=== PATIENT | female | born 1965 | race Caucasian/White ===

== ENCOUNTER → 2020-09-15 11:41 | Outpatient (CLI) | payer BC, SELFPAY ==
--- NOTE | ~2020-09-15 | CT_ITS ---
EXAMINATION: CT sinus wo con EXAM DATE: 09/15/2020 12:04 INDICATION: Chronic sinusitis, congestion, sinus drainage. TECHNIQUE: Spiral CT of the sinuses was acquired in the axial plane. Coronal and sagittal reformatte d images were also reviewed. The dose-length product (DLP) for this examination was 295.05 mGy-cm. Iterative reconstruction (ASIR) was used as dose reduction technique. Comparison is made to prior exa mination from 05/03/2017. FINDINGS: The sinuses are normally developed. Frontal and ethmoid sinuses are nearly completely op acified. There is moderate mucoperiosteal thickening in the maxillary and sphenoid sinuses with air-f luid levels in all of them. Sinus wall thickening indicating that there is chronic sinus opacity. The amount of opacity has progressed substantially compared to 2017. The ostiomeatal units are occluded . There is minimal leftward nasal septal deviation. The mastoid air cells and middle ears are well aerated. External auditory canals are patent. Incidental bilateral optical retina punctate calci fication, drusen. IMPRESSION: 1. Extensive acute on chronic sinusitis. 2. Incidental bilateral drusen. Reviewed, dictated and finalized at location B. SS SERVICE REPRESENTATIVE
== END ==
PROVIDERS: Visit Provider Otolaryngology
DX: H47.323 Drusen of optic disc, bilateral (principal); J01.80 Other acute sinusitis
CPT/HCPCS: 70486

== ENCOUNTER → 2020-10-09 05:15 | Outpatient (CLI) | payer BC, SELFPAY ==
[2020-10-09 19:22] LABS: SARS-CoV-2 RNA PCR Negative
== END ==
PROVIDERS: Visit Provider Otolaryngology
DX: Z01.812 Encounter for preprocedural laboratory examination (principal); Z20.822 Contact with and (suspected) exposure to COVID-19
CPT/HCPCS: C9803; U0003; U0005

== ENCOUNTER 2020-10-12 01:30 | Day surgery (SDC) | payer BC, SELFPAY ==
[2020-10-05 10:12] VITALS: BMI 21.9
[2020-10-12] VITALS (8 sets, daily range): BP systolic 103–129; BP diastolic 66–76; PULSE 44–69; RESP 11–15; TEMP 36.4; O2SAT 94–100; BMI 21.5
--- NOTE | 2020-10-12 07:21 | WPDHPUPDATE1 ---
History and Physical Update Update Date/Time: 10/12/20 07:21 History and Physical has been reviewed, including an updated exam of the patient. There are NO changes in the patient's condition. Risks, benefits, and alternatives have been discussed and questions answered. Patient agrees to proceed with procedure.
[2020-10-12] MEDS: ACETAMINOPHEN 500 MG TABLET 1000 MG PO (07:40)
[2020-10-12] MEDS: LACTATED RINGERS 1,000 ML 30 ML IV CONT ×2 (07:57→10:59)
--- NOTE | 2020-10-12 07:58 | P.PNAN_ITS ---
Anes - Initial Pre Proc Eval Procedure: Operation Date: 10/12/20 09:00 Proposed Procedures p Image Guided Bilateral Frontal Sinusotomy, Bilateral Ethmoidectomy, Bilateral Sphenoidotomy, Bilateral Maxillary Antrostomy, Bilateral Turbinate Reduction, Bilateral Maxillary Lavage, - Adan Gutierrez MD s Septoplasty - Adan Gutierrez MD Date/Time: 10/12/20 07:58 Surgeon: Adan Gutierrez MD Pre Op Diagnosis: Chronic Pansinusitis Patient Data Age: 54 Gender: F Height: 6 ft 4 in Weight: 80.3 kg Allergies Allergy/AdvReac Type Severity Reaction Status Date / Time amoxicillin [From Augmentin] Allergy Severe Rash Verified 10/12/20 07:36 clavulanic acid Allergy Severe Rash Verified 10/12/20 07:36 [From Augmentin] Home Medications Medication Instructions Recorded Confirmed Type Multi Vitamin 1 tablet PO HS 10/05/20 10/12/20 History fluticasone furoate-vilanterol 1 inh INHALATION DAILY 10/05/20 10/12/20 History [Breo Ellipta] levofloxacin 500 mg PO DAILY 10/05/20 10/12/20 History Patient hx anesthesia problems: none Family hx anesthesia problems: none [facility] Past Medical History Medical History Asthma Social History Social History Smoking status: Never smoker Alcohol intake: never Substance use: never Substance use type: does not use Living arrangements: with family Spiritual care concerns: No Anes - Eval Final PreProcedure Day of Procedure 10/12/20 07:58 Patient weight: normal Heart: regular rate and rhythm Lungs: clear to auscultation Airway: Mallampati scale class II Neurological: alert and oriented Last oral intake: >/= 8 hours ASA classification: II Emergent: no Anesthetic plan: proceed Anesthesia type and monitoring: general ETT and standard monitoring Informed Consent: The patient's anesthetic plan and its attendant risks and benefits were discussed with the patient/family/POA. Questions were solicited and answers provided to the satisfaction of the patient/family/POA.
[2020-10-12] MEDS: OXYMETAZOLINE HCL 0.05% NAS 15 ML BTL (*BKC) 1 SPRAY NASAL (09:05)
[2020-10-12] MEDS: CLINDAMYCIN 900 MG/D5W 50 ML 900 MG/50 ML PIGGYBACK 50 MG IVPB (09:11)
[2020-10-12] MEDS: LIDO 1%/EPINEPHRINE 1:100,000 50 ML VIAL 6 ML INFILTRATE (09:17)
--- NOTE | 2020-10-12 10:50 | PM.PROC ---
Procedure Note - Detailed Date of procedure: 10/12/20 Pre-op diagnosis: Chronic Pansinusitis Post-op diagnosis: same Procedure performed: Bilateral frontal sinusotomy balloon assisted, bilateral maxillary antrostomy with maxillary lavage, bilateral total ethmoidectomy, bilateral sphenoidotomy, bilateral inferior turbinoplasty, image guided surgery Description of procedure: On the date of procedure the patient was met in the preoperative area and risk and benefits of the procedure reviewed with the patient as documented in the H&P and they elected to proceed with surgery. Patient was brought back to the operating room by the anesthesia team and underwent general endotracheal anesthesia. Once an adequate plane of anesthesia was obtained a timeout was performed to assure the patient identification the patient here to be performed were correct. They were.The patient was then prepped and draped in the normal fashion for endoscopic sinus surgery. The diffusion image guidance system was calibrated and used for the entire case. Afrin-soaked pledgets were placed in the nasal cavities bilaterally. The entire case was performed under endoscopic visualization. Nasal endoscopy was performed at the beginning of the case. 1% lidocaine with 1:100,000 epinephrine was then injected into the root of the middle turbinate and lateral nasal wall. Attention was first directed towards the right side. The middle turbinate was medialized and the osteomeatal complex was identified with a dolly probe. Using a 90 degree backbiter, the uncinate process was reflected anteriorly and removed using a combination of sharp and powered dissection. The maxillary antrostomy was then created and widened by identifying the natural ostia and opening the sinus with straight lay-cut forceps, backbiter, and microdebrider. Purulent fluid encountered in the maxillary sinus was suctioned and the sinus was copiously irrigated. Continuing with the microdebrider, the anterior ethmoid bulla was opened. Careful dissection was carried out posteriorly, through the basal lamella and posterior ethmoid cells until the sphenoid rostrum was identified. A Lilliana suction bluntly identified the sphenoid os and the opening was widened with microdebrider and mushroom punch to 5mm. Using an image guided curved suction as well as J-curette, the posterior most ethmoid cell was identified and the ethmoids were bluntly fractured and dissected from posterior to anterior along the base of the skull. The remaining bone fragments were removed with appropriate curved instruments and microdebrider. Next, The left maxillary antrostomy, ethmoidectomy and sphenoidotomy were carried out in identical fashion with findings of gross infection in the left maxillary sinus requiring lavage. Upon completion of these portions of the procedure, attention was returned to the right side and an image guided frontal sinus balloon was used to enter the frontal sinus. Several dilations performed under image guidance to verify complete opening of the sinus. The left frontal sinus was then irrigated to remove all infection. With all sinuses opened, medtronic packing was placed in the ethmoid acvities bilaterally. Hemostasis was ensured. Lastly, the bilateral inferior turbiantes were reduced submucosally using 2mm microdebrider and then outfractured with a sayer elevator. This significantly opened the airway. At this point, the procedure was concluded. Care the patient was transferred back to the anesthesia team and the patient was awoke in the operating room and transferred back to the PACU in stable condition. Adan Gutierrez M.D. Anesthesia: GETA Surgeon: Adan Gutierrez MD Estimated blood loss (mL): 100 Drains: No Packing: Yes Pathology: none sent Complications: No immediate complications Condition: stable Disposition: PACU Findings: Bilateral maxillary infection
[2020-10-12] MEDS: fentaNYL CITRATE INJ (*CRX) 100 MCG/2 ML VIAL 25 MCG IV PUSH (11:55)
[2020-10-12] MEDS: oxyCODONE HCL (*CRX) 5 MG TAB IR PO (12:37)
== END 2020-10-12 13:25 | disposition home or self-care (01) ==
PROVIDERS: Visit Provider Otolaryngology
PROC: (CPT 31296; principal; 2020-10-12 09:00)
DX: J32.4 Chronic pansinusitis (principal); J45.909 Unspecified asthma, uncomplicated
CPT/HCPCS: 31296; 31256; 31257; 30140; 61782; A9270; C1726; J0330; J1100; J2250; J2370; J2405; J2704; J3010; J7120

== ENCOUNTER → 2021-08-13 09:35 | Outpatient (CLI) | payer BC, SELFPAY ==
--- NOTE | ~2021-08-13 | MR_ITS ---
EXAMINATION: MR knee LT wo con DATE: 08/13/2021 10:18 INDICATION: Left knee pain and swelling TECHNIQUE: Magnetic resonance imaging (MRI) of the left knee was performed without intravenous contra st. Sequences included coronal PD-weighted FSE, coronal PD-weighted FS FSE, sagittal T2-weighted FSE , sagittal PD-weighted FS FSE and axial PD weighted fat saturated FSE. COMPARISON: None. FINDINGS: There is mild motion blurring on the sagittal and coronal sequences mildly limiting evaluation primar kush of the cartilage. Medial compartment: Mild medial extrusion of the body of the medial meniscus. There is a longitudinal vertical tear exten ding to the cephalad articular surface at the peripheral third of the body the tear appears to extend into the posterior horn where it has a complex configuration. Chondral ulceration which in place. In volve greater than 50% the cartilage thickness throughout the anterior to central weightbearing media l femoral condyle. Partial-thickness cartilage loss with relatively smooth chondral surface along the medial half of the medial tibial plateau. Lateral compartment: Lateral meniscus is normal. There is deep chondral ulceration along the central to medial aspect of t he anterior weightbearing lateral femoral condyle as well as the lateral tibial plateau extending ont o the shoulder the intercondylar eminence. Patellofemoral compartment: Extensive full/near full-thickness cartilage loss involving the entire lateral patellar facet and jux taposed lateral two thirds of the lateral trochlea, both with corresponding remodeling of the articul ar cortices and prominent marginal osteophytes. Less severe shallow chondral fissuring at the medial facet and along the margins of the medial trochlea where there are additional prominent marginal oste ophytes. Ligaments and tendons: Anterior and posterior cruciate ligaments are normal. The medial collateral ligament and fibular je ateral ligament complex are normal. Mild to moderate tendinopathy without definitive tear at the femo ral insertion of the popliteal tendon. Patellar tendon is normal. Mild tendinopathy at the distal karey driceps tendon. Additional mild tendinopathy without discrete tear at the distal semimembranosus tend on. The remaining visualized medial and lateral hamstring tendons as well as the iliotibial band are normal. Fluid: Small to moderate-sized left knee joint effusion with synovitis at the axillary pouch, intercondylar notch along the posterior recesses of the knee. No loose osteochondral bodies identified. Small Mccauley 's cyst. Osseous/other: There is approximately 6 mm lateral of the left knee joint. There is also 1 cm lateral patellar sublu xation and lateral patellar tilt.. No fracture or pathologic marrow replacing process. IMPRESSION: 1. Complex medial meniscal tear. 2. 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 3. Small to moderate left knee joint effusion and small Mccauley's cyst. Reviewed, dictated and finalized at location A. CTOR OCCUPATIONAL IMPRESSION: 1. Complex medial meniscal tear. 2. Tricompartmental osteoarthritis, severe at the patellofemoral compartment an d mild with moderate grade chondromalacia in the medial and lateral compartment s. 3. Small to moderate left knee joint effusion and small Mccauley's cyst.
== END ==
PROVIDERS: Visit Provider Specialist
DX: M25.562 Pain in left knee (principal); M79.89 Other specified soft tissue disorders; S83.232A Complex tear of medial meniscus, current injury, left knee, initial encounter; M17.12 Unilateral primary osteoarthritis, left knee; M94.262 Chondromalacia, left knee; M25.462 Effusion, left knee; M71.22 Synovial cyst of popliteal space [Baker], left knee
CPT/HCPCS: 73721